=== PATIENT | female | born 1985 | race Caucasian/White ===

== ENCOUNTER → 2019-05-09 | Outpatient (CLI) | payer OTHER ==
--- NOTE | 2019-05-09 13:21 | REP ---
LEFT FOOT SERIES: Four views of the left foot performed. No fracture or dislocation is seen. There is a density in the dorsal soft tissues between the distal aspect of the first and second metatarsals. This measures 5 x 2 mm and I suspect this represents a foreign body in the soft tissues. Electronically Signed by Nazario Degorot MD 05/10/2019 09:56 A
== END ==
LOC: M LRY 11:19
PROVIDERS: ATTEND Physician Assistant
DX: S99.922A Unspecified injury of left foot, initial encounter (principal); X58.XXXA Exposure to other specified factors, initial encounter; Y92.89 Other specified places as the place of occurrence of the external cause
CPT/HCPCS: 73630; G0463